=== PATIENT | male | born 1995 | race Two or more races ===

== ENCOUNTER 2024-04-20 23:33 | Emergency (ER) | payer MEDICAID ==
[~2024-04-20] VITALS: Ht 170.2 cm; Wt 54.5 kg
[2024-04-20 23:40] VITALS: BP 104/65; PULSE 78; RESP 16; TEMP 98.3; O2SAT 95
[2024-04-21] MEDS ORDERED: DIPH-1164 PO (00:09)
[2024-04-21] MEDS: LORazepam 2 MG TABLET PO ONE (00:17)
[2024-04-21] MEDS: PrednisoLONE SOD PHOSPHATE 15 MG/5 ML SOLUTION UDCUP PO ONE (00:17)
== END 2024-04-21 00:27 | disposition home or self-care (01) ==
LOC: EMS 23:33
DX: K20.0 Eosinophilic esophagitis (principal); F41.9 Anxiety disorder, unspecified; Z91.012 Allergy to eggs; Z91.011 Allergy to milk products
CPT/HCPCS: 99283; J7510